=== PATIENT | male | born 1950 | race Caucasian/White ===

== ENCOUNTER 2019-07-13 15:15 | Outpatient (RCR) | payer MEDICARE, OTHER, SELFPAY ==
[2019-06-29 13:59] VITALS: BP 130/81; PULSE 77; RESP 18; TEMP 36.2; BMI 25.0
--- NOTE | 2019-06-29 14:35 | PCM.WC.HP ---
(1) PVD (peripheral vascular disease) Status: Acute Current Visit: Yes Code(s): I73.9 - Peripheral vascular disease, unspecified (2) Venous ulcer of left leg Status: Acute Current Visit: Yes Code(s): I83.029 - Varicose veins of left lower extremity with ulcer of unspecified site; L97.929 - Non-pressure chronic ulcer of unspecified part of left lower leg with unspecified severity (3) Psoriasis Status: Acute Current Visit: Yes Code(s): L40.9 - Psoriasis, unspecified (4) ADHD Status: Acute Current Visit: Yes Code(s): F90.9 - Attention-deficit hyperactivity disorder, unspecified type (5) Alcohol dependence Status: Acute Current Visit: Yes Code(s): F10.20 - Alcohol dependence, uncomplicated (6) Depression Status: Acute Current Visit: Yes Code(s): F32.9 - Major depressive disorder, single episode, unspecified History of Present Illness Date of Service: 06/29/19 Chief Complaint: Nonhealing ulcer left lower extremity x2 months History of Wound: This is a 69-year-old white male who presents to the wound healing center today with a complaint of nonhealing ulcer to the left lower extremity x2 months. He has a past medical history as listed above significant for peripheral vascular disease, depression, ADHD, alcohol dependence, and psoriasis. The patient states that he was initially seen by his primary care provider who had placed him initially on Keflex for the surrounding cellulitis and has been covering the site with gauze. He states that the wound initially occurred after he started picking at 1 of his areas of psoriasis. He states that there is no improvement on the Keflex so his antibiotic was most recently switched to clindamycin. He continues to report some surrounding erythema but no systemic signs of infection such as fevers, chills, malaise, nausea or vomiting. He denies any other acute concerns at this time. He denies any other aggravating or relieving factors. He did recently have arterial studies done this week, however records are not available for review at this time. Past Medical History Surgical History: noncontributory Allergies/Adverse Reactions: Allergies sulfamethoxazole [From Bactrim] Adverse Reaction (Verified 06/29/19 13:59) Unknown trimethoprim [From Bactrim] Adverse Reaction (Verified 06/29/19 13:59) Unknown Home Medications: Ambulatory Orders Medication Instructions Recorded Adderall 7.5 mg Tablet 7.5 mg 06/29/19 Bupropion HCl 200 mg 06/29/19 Clindamycin 300 mg 06/29/19 Vit B12/Folic Acid/B6/Aa No.15 1 ea PO 06/29/19 [Glycotrol Capsule] Vit D3/Folic Acid/B2/B6/B12 06/29/19 [Folgard Tablet] Smoking Status: Former smoker Review of Systems Constitutional: Denies: Chills, Fever, Weight Change Eyes: Denies: Pain, Vision Change HEENT: Denies: Difficulty Hearing, Difficulty Swallowing, Sinus Congestion Cardiovascular: Denies: Chest Pain, Palpitations Respiratory: Denies: Cough, Shortness of Breath Gastrointestinal: Denies: Diarrhea, Nausea, Vomiting Genitourinary: Denies: Dysuria, Hematuria Skin: Reports: Wounds - See HPI Endocrine: Denies: Heat/ Cold Intolerance, Polydipsia, Polyuria Hematologic/ Lymphatic: Denies: Easy Bruising, Easy Bleeding - Physical Exam Vital Signs Temp Pulse Resp BP 97.1 F L 77 18 130/81 H 06/29/19 13:59 06/29/19 13:59 06/29/19 13:59 06/29/19 13:59 General: Alert, Oriented x3, Cooperative, No apparent distress HEENT: Atraumatic Oral: Moist Mucosa Lungs: Clear to auscultation, Normal air movement Cardiovascular: Regular rate, Regular Rhythm Abdomen: Soft, Non Tender Extremities: No clubbing, No cyanosis, Diminished Peripheral Pulses - +1 diminished pulses, Edema - Bilateral lower extremity edema +1 nonpitting Skin: Ulcer/ Wound - Ulceration with large amount of adherent slough to left lower extremity with greater than 3 cm area of cellulitis with erythema and warmth, no streaking noted at this time, no purulent drainage or foul smell noted at this time Wound Measurements and Assessment WC - Nurse 1 - General Ulcer Measurement Start: 06/29/19 13:58 Freq: Status: Active Protocol: Activity Type Activity Date Activity User E-Sign Co-Sign Detail Recorded Client Recorded Date Recorded By Document 06/29/19 13:59 RB [id number] 06/29/19 14:06 RB 06/29/19 13:59 Wound Center Nurse 1 [Ulcer Assessment] 1. L medial LE -Combined with other wound No -Current Size (cm) - Length 2.3 -Current Size (cm) - Width 2 -Current Size (cm) - Depth 0.2 -Total Square Cm 4.6 -Photo Taken Yes -Tunneling No -Undermining/Tunneling No -Circular Undermining No -Classification - Thickness Full Thickness without Exposed Support Structure -Exudate Amt Medium -Exudate Type Serosanguineous -Wound Margin Flat & Intact -Granulation Amt Medium (34-66%) -Granulation Quality Red -Slough/Fibrin Yes -Necrosis Amt Medium (34-66%) -Necrotic Tissue Type Adherent Slough -Structure Exposed N/A -Texture (Jackie-wound Skin Appearance) Assessed -Moisture (Jackie-wound Skin Appearance Assessed ) -Color (Jackie-wound Skin Appearance) Hemosiderin Staining -Temperature (Jackie-wound Skin No Abnormality Appearance) (Pt Warm) -Tenderness on Palpation (Jackie-wound No Skin Appearance) -Ulcer Cleansing Wound Cleanser -Foul Odor after Cleansing No -Anesthetic Used 5% Lidocaine Gel [Edema Assessment] -Lower Limb Edema Present Yes -Right Calf (cm) 41 -Right Ankle (cm) 25 -Left Calf (cm) 38.5 -Left Ankle (cm) 24.7 WC - Nurse 2 - General Ulcer CM Notes Start: 06/29/19 13:58 Freq: Status: Active Protocol: Activity Type Activity Date Activity User E-Sign Co-Sign Detail Recorded Client Recorded Date Recorded By Document 06/29/19 14:31 AN [id number] 06/29/19 14:33 AN 06/29/19 14:31 Wound Center Nurse 2 [Procedure/Treatment] 1. L medial LE -Time 14:32 -Correct Patient Yes -Correct Side, Site, Position Yes -Correct Procedure Yes -Procedure Performed Yes -Type of Procedure Debridement -Clinical Debridement Subcutaneous -Post Debridement Size (cm) - Length 4.2 -Post Debridement Size (cm) - Width 2.1 -Post Debridement Size (cm) - Depth 0.2 -Total Square Cm 8.82 -Wound/Ulcer Outcome Not Healed -Ulcer Cleansing Rinsed/ Irrigated with Saline -Foul Odor after Cleansing No -Bioengineered Tissue No -Bleeding Controlled with Pressure -Treatment Response Procedure Tolerated Well [See Physician Procedure note for Specifics] Pain Scale: 0-10 Numeric [Pain] -Is Patient Pain Free? Yes Neurological: Neuro grossly intact Psych/Mental Status: Normal Affect, Appropriate, Alert and oriented to time, place, person, mood and affect Debridement Note Post-Debridement Measurements/Treatment WC - Nurse 2 - General Ulcer CM Notes Start: 06/29/19 13:58 Freq: Status: Active Protocol: Activity Type Activity Date Activity User E-Sign Co-Sign Detail Recorded Client Recorded Date Recorded By Document 06/29/19 14:31 SARIAH [id number] 06/29/19 14:33 AN 06/29/19 14:31 Wound Center Nurse 2 1. L medial LE -Time 14:32 -Correct Patient Yes -Correct Side, Site, Position Yes -Correct Procedure Yes -Procedure Performed Yes -Type of Procedure Debridement -Clinical Debridement Subcutaneous -Post Debridement Size (cm) - Length 4.2 -Post Debridement Size (cm) - Width 2.1 -Post Debridement Size (cm) - Depth 0.2 -Total Square Cm 8.82 -Wound/Ulcer Outcome Not Healed -Ulcer Cleansing Rinsed/ Irrigated with Saline -Foul Odor after Cleansing No -Bioengineered Tissue No -Bleeding Controlled with Pressure -Treatment Response Procedure Tolerated Well Pain Scale: 0-10 Numeric Is Patient Pain Free? Yes Wound debrided: Venous leg ulcer left lower extremity Laterality: Left Type of Debridement: Excisional debridement Anesthesia Used: 4% Lidocaine Solution Depth: in the subcutaneous layer Percentage of wound debrided: 100 Instrument Used: 5mm curette Tissue Removed: Slough and devitalized tissue Severity: Fat Layer Exposed Amount of bleeding with debridement: Mild Bleeding Controlled with: Pressure Patient tolerated procedure well Assessment/Plan Active Problems PVD (peripheral vascular disease) (Acute) Venous ulcer of left leg (Acute) Psoriasis (Acute) ADHD (Acute) Alcohol dependence (Acute) Depression (Acute) Assessment: See above diagnoses, major wound diagnoses PVD and venous leg ulcer of the left lower extremity Plan: The patient was seen and examined at the wound center today and was updated on the plan of care. A subcutaneous debridement was performed today. The patient tolerated the procedure well. The patients wound care will consist of: Applying moistened Paulina and gauze and double layer Tubigrip's for compression. Will request recent arterial studies and blood work for review. Wound cultures were collected. Patient educated on the importance of diet on wound healing and instructed to increase protein and vitamin C intake. Patient verbalized understanding. Given the delayed wound healing and the fact that patient has failed 2 months of standard wound treatment from his primary care, will apply for the use of an advanced skin substitute. Patient will follow up at wound healing center in one week or sooner if needed. This note was generated with [employer] software. It may contain incorrect words, spelling, and punctuation that were not noted in checking the note before signing. Code Visit Office Visits / Consults: [id number] OV L4 New [id number]: [id number] Elizabeth subq tissue 20 sq cm/<
[2019-06-30 16:36] LABS: Probe Check PASS; Staph aureus DNA By PCR POSITIVE (Negative)
[2019-06-30 16:37] LABS: M R Staph aureus DNA By PCR POSITIVE (Negative)
[2019-07-06 14:29] VITALS: BP 120/66; PULSE 94; RESP 16; TEMP 36.6; BMI 25.0
--- NOTE | 2019-07-06 19:40 | PCM.WC.PN ---
(1) Venous ulcer of left leg Status: Acute Code(s): I83.029 - Varicose veins of left lower extremity with ulcer of unspecified site; L97.929 - Non-pressure chronic ulcer of unspecified part of left lower leg with unspecified severity (2) PVD (peripheral vascular disease) Status: Acute Code(s): I73.9 - Peripheral vascular disease, unspecified (3) Psoriasis Status: Acute Code(s): L40.9 - Psoriasis, unspecified (4) ADHD Status: Acute Code(s): F90.9 - Attention-deficit hyperactivity disorder, unspecified type (5) Alcohol dependence Status: Acute Code(s): F10.20 - Alcohol dependence, uncomplicated (6) Depression Status: Acute Code(s): F32.9 - Major depressive disorder, single episode, unspecified Type of Wound Date of Service: 07/06/19 Chief Complaint: Nonhealing ulcer left lower extremity x2 months History of Wound: This is a 69-year-old white male who presents to the wound healing center today with a complaint of nonhealing ulcer to the left lower extremity x2 months. He has a past medical history as listed above significant for peripheral vascular disease, depression, ADHD, alcohol dependence, and psoriasis. The patient states that he was initially seen by his primary care provider who had placed him initially on Keflex for the surrounding cellulitis and has been covering the site with gauze. He states that the wound initially occurred after he started picking at 1 of his areas of psoriasis. He states that there is no improvement on the Keflex so his antibiotic was most recently switched to clindamycin. He continues to report some surrounding erythema but no systemic signs of infection such as fevers, chills, malaise, nausea or vomiting. He denies any other acute concerns at this time. He denies any other aggravating or relieving factors. He did recently have arterial studies done this week, however records are not available for review at this time. Progress of Wound: Wound size is stable, surrounding area of cellulitis is improved, still some erythema periwound bed. Patient completed his clindamycin prior. His cultures were reviewed and negative. Will be started on doxycycline today. First Apligraf was applied today. Patient tolerated procedure well. - Physical Exam Vital Signs Temp Pulse Resp BP 98 F 94 16 120/66 07/06/19 14:29 07/06/19 14:29 07/06/19 14:29 07/06/19 14:29 General: Alert, Oriented x3, Cooperative, No apparent distress HEENT: Atraumatic Oral: Moist Mucosa Lungs: Clear to auscultation Cardiovascular: Regular rate Abdomen: Soft, Non Tender Extremities: No clubbing, No cyanosis, Edema - Generalized bilateral lower extremity edema with chronic venous changes present bilateral lower extremities Skin: Ulcer/ Wound - Ulceration to left lower extremity with adherent slough, periwound bed erythematous, however prior area of cellulitis is resolving from the previous margins that were outlined. Neurological: Neuro grossly intact Psych/Mental Status: Normal Affect, Appropriate, Alert and oriented to time, place, person, mood and affect Debridement Note Post-Debridement Measurements/Treatment WC - Nurse 2 - General Ulcer CM Notes Start: 06/29/19 13:58 Freq: Status: Active Protocol: Activity Type Activity Date Activity User E-Sign Co-Sign Detail Recorded Client Recorded Date Recorded By Document 06/29/19 14:31 AN [id number] 06/29/19 14:33 AN Document 07/06/19 14:39 MW [id number] 07/06/19 14:50 MW 06/29/19 07/06/19 14:31 14:39 Wound Center Nurse 2 1. L medial LE -Time 14:32 14:41 -Correct Patient Yes Yes -Correct Side, Site, Position Yes Yes -Correct Procedure Yes Yes -Procedure Performed Yes Yes -Type of Procedure Debridement Debridement -Clinical Debridement Subcutaneous Subcutaneous -Post Debridement Size (cm) - Length 4.2 3.0 -Post Debridement Size (cm) - Width 2.1 2.2 -Post Debridement Size (cm) - Depth 0.2 0.2 -Total Square Cm 8.82 6.60 -Wound/Ulcer Outcome Not Healed Not Healed -Ulcer Cleansing Rinsed/ Rinsed/ Irrigated with Irrigated with Saline Saline -Foul Odor after Cleansing No No -Bioengineered Tissue No Yes -Type of bioengineered Tissue Apligraf -Expiration Date 07/14/19 -Product Lot Number [id number] -Percent Used 100 -Saline Lot Number [id number] -Bleeding Controlled with Pressure Pressure -Offloading No -Treatment Response Procedure Procedure Tolerated Well Tolerated Well Pain Scale: 0-10 Numeric Is Patient Pain Free? Yes Yes Wound debrided: Left VL U Laterality: Left Type of Debridement: Excisional debridement Anesthesia Used: 5% Lidocaine Gel Depth: in the subcutaneous layer Percentage of wound debrided: 100 Instrument Used: 7mm curette Tissue Removed: Slough and devitalized tissue Severity: Fat Layer Exposed Amount of bleeding with debridement: Mild Bleeding Controlled with: Pressure Patient tolerated procedure well Assessment/Plan Assessment: See above diagnoses, major wound diagnoses PVD and venous leg ulcer of the left lower extremity Plan: The patient was seen and examined at the wound center today and was updated on the plan of care. A subcutaneous debridement was performed today. The patient tolerated the procedure well. The patients wound care will consist of: Apligraf # 1 was applied after subcutaneous debridement, it was then covered with the wound veil and secured with Steri-Strips, 100% of the product was used with 0% waste. Patient tolerated the procedure well. Applying double layer Tubigrip's for compression. Will request recent arterial studies and blood work for review. Wound cultures were collected prior and are negative, however given the periwound bed erythema, will treat with doxycycline. Patient educated on the importance of diet on wound healing and instructed to increase protein and vitamin C intake. Patient verbalized understanding. Given the delayed wound healing and the fact that patient has failed 2 months of standard wound treatment from his primary care, will apply for the use of an advanced skin substitute. Patient will follow up at wound healing center in one week or sooner if needed. This note was generated with [employer] dictation software. It may contain incorrect words, spelling, and punctuation that were not noted in checking the note before signing. Code Visit [id number]: [id number] Skin sub graft trnk/arm/leg
[2019-07-13 15:34] VITALS: BP 106/65; PULSE 83; RESP 18; TEMP 36.1; BMI 25.0
--- NOTE | 2019-07-16 19:56 | PN.PCM_ITS ---
(1) Venous ulcer of left leg Status: Acute Code(s): I83.029 - Varicose veins of left lower extremity with ulcer of unspecified site; L97.929 - Non-pressure chronic ulcer of unspecified part of left lower leg with unspecified severity (2) PVD (peripheral vascular disease) Status: Acute Code(s): I73.9 - Peripheral vascular disease, unspecified (3) Psoriasis Status: Acute Code(s): L40.9 - Psoriasis, unspecified (4) ADHD Status: Acute Code(s): F90.9 - Attention-deficit hyperactivity disorder, unspecified type (5) Alcohol dependence Status: Acute Code(s): F10.20 - Alcohol dependence, uncomplicated (6) Depression Status: Acute Code(s): F32.9 - Major depressive disorder, single episode, unspecified Type of Wound Date of Service: 07/13/19 Chief Complaint: Nonhealing ulcer left lower extremity x2 months History of Wound: This is a 69-year-old white male who presents to the [facility] today with a complaint of nonhealing ulcer to the left lower extremity x2 months. He has a past medical history as listed above significant for peripheral vascular disease, depression, ADHD, alcohol dependence, and psoriasis. The patient states that he was initially seen by his primary care provider who had placed him initially on Keflex for the surrounding cellulitis and has been covering the site with gauze. He states that the wound initially occurred after he started picking at 1 of his areas of psoriasis. He states that there is no improvement on the Keflex so his antibiotic was most recently switched to clindamycin. He continues to report some surrounding erythema but no systemic signs of infection such as fevers, chills, malaise, nausea or vomiting. He denies any other acute concerns at this time. He denies any other aggravating or relieving factors. He did recently have arterial studies done this week, however records are not available for review at this time. Progress of Wound: Wound size was not able to be thoroughly evaluated as Apligraf application still in place, patient tolerating his doxycycline well. No obvious signs of infection at this time and no systemic signs of infection such as fever, chills, nausea, vomiting, shortness of breath, chest pain or pressure, syncope or presyncopal episodes. - Physical Exam Vital Signs Temp Pulse Resp BP 97.0 F L 83 18 106/65 07/13/19 15:34 07/13/19 15:34 07/13/19 15:34 07/13/19 15:34 General: Alert, Oriented x3, Cooperative, No apparent distress HEENT: Atraumatic Oral: Moist Mucosa Lungs: Clear to auscultation Cardiovascular: Regular rate Abdomen: Soft, Non Tender Extremities: No clubbing, No cyanosis, No edema Skin: Ulcer/ Wound - not visualized, apligraf in place Musculoskeletal: No Tenderness to Palpation of Joints or Extremities Neurological: Neuro grossly intact Psych/Mental Status: Normal Affect, Appropriate, Alert and oriented to time, place, person, mood and affect Debridement Note Post-Debridement Measurements/Treatment WC - Nurse 2 - General Ulcer CM Notes Start: 06/29/19 13:58 Freq: Status: Active Protocol: Activity Type Activity Date Activity User E-Sign Co-Sign Detail Recorded Client Recorded Date Recorded By Document 06/29/19 14:31 AN [id number] 06/29/19 14:33 AN Document 07/06/19 14:39 MW [id number] 07/06/19 14:50 MW Document 07/13/19 15:51 MW [id number] 07/13/19 15:53 MW 06/29/19 07/06/19 07/13/19 14:31 14:39 15:51 Wound Center Nurse 2 1. L [facility] LE -Time 14:32 14:41 15:52 -Correct Patient Yes Yes Yes -Correct Side, Site, Position Yes Yes Yes -Correct Procedure Yes Yes Yes -Procedure Performed Yes Yes No -Type of Procedure Debridement Debridement -Clinical Debridement Subcutaneous Subcutaneous -Post Debridement Size (cm) - Length 4.2 3.0 -Post Debridement Size (cm) - Width 2.1 2.2 -Post Debridement Size (cm) - Depth 0.2 0.2 -Total Square Cm 8.82 6.60 -Wound/Ulcer Outcome Not Healed Not Healed Not Healed -Ulcer Cleansing Rinsed/ Rinsed/ Irrigated with Irrigated with Saline Saline -Foul Odor after Cleansing No No -Bioengineered Tissue No Yes -Type of bioengineered Tissue Apligraf -Expiration Date 07/14/19 -Product Lot Number [id number] -Percent Used 100 -Saline Lot Number [id number] -Bleeding Controlled with Pressure Pressure -Offloading No -Treatment Response Procedure Procedure Tolerated Well Tolerated Well Pain Scale: 0-10 Numeric Is Patient Pain Free? Yes Yes Yes No debridement was completed today Assessment/Plan Assessment: See above diagnoses, major wound diagnoses PVD and venous leg ulcer of the left lower extremity Plan: The patient was seen and examined at the wound center today and was updated on the plan of care. A subcutaneous debridement was performed today. The patient tolerated the procedure well. The patients wound care will consist of: Apligraf # 1 was still intact and patient to continue Applying double layer Tubigrip's for compression. Will request recent arterial studies and blood work for review. Wound cultures were collected prior and are negative, however given the periwound bed erythema, patient treated with doxycycline. Patient educated on the importance of diet on wound healing and instructed to increase protein and vitamin C intake. Patient verbalized understanding. Given the delayed wound healing and the fact that patient has failed 2 months of standard wound treatment from his primary care, will apply for the use of an advanced skin substitute. Patient will follow up at wound healing center in one week or sooner if needed. This note was generated with [employer] dictation software. It may contain incorrect words, spelling, and punctuation that were not noted in checking the note before signing. Code Visit Office Visits / Consults: [id number] OV L3 Est
== END 2019-07-15 23:59 ==
LOC: WC 15:15
PROVIDERS: Family Provider Nurse Practitioner Family; PCP Nurse Practitioner Family; Visit Provider Nurse Practitioner Family
DX: I83.028 Varicose veins of left lower extremity with ulcer other part of lower leg (principal); L97.822 Non-pressure chronic ulcer of other part of left lower leg with fat layer exposed; L40.9 Psoriasis, unspecified; F90.9 Attention-deficit hyperactivity disorder, unspecified type; F32.9 Major depressive disorder, single episode, unspecified; F10.20 Alcohol dependence, uncomplicated
CPT/HCPCS: 11042; 15271; 15272; 87070; 87075; 87205; 87640; 99203; 99213; Q4101; G0463

== ENCOUNTER 2019-08-10 14:15 | Outpatient (RCR) | payer MEDICARE, SELFPAY ==
[2019-07-16 01:12] VITALS: BP 106/65; PULSE 83; RESP 18; TEMP 36.1
[2019-07-20 15:14] VITALS: BP 117/71; PULSE 86; RESP 18; TEMP 36; BMI 25.0
--- NOTE | 2019-07-20 17:18 | PN.PCM_ITS ---
(1) Venous ulcer of left leg Status: Acute Code(s): I83.029 - Varicose veins of left lower extremity with ulcer of unspecified site; L97.929 - Non-pressure chronic ulcer of unspecified part of left lower leg with unspecified severity (2) ADHD Status: Acute Code(s): F90.9 - Attention-deficit hyperactivity disorder, unspecified type (3) Alcohol dependence Status: Acute Code(s): F10.20 - Alcohol dependence, uncomplicated (4) Depression Status: Acute Code(s): F32.9 - Major depressive disorder, single episode, unsp ecified (5) PVD (peripheral vascular disease) Status: Acute Code(s): I73.9 - Peripheral vascular disease, unspecified (6) Psoriasis Status: Acute Code(s): L40.9 - Psoriasis, unspecified Type of Wound Date of Service: 07/20/19 Chief Complaint: Nonhealing ulcer left lower extremity x2 months History of Wound: This is a 69-year-old white male who presents to the [facility] today with a complaint of nonhealing ulcer to the left lower extremity x2 months. He has a past medical history as listed above significant for peripheral vascular disease, depression, ADHD, alcohol dependence, and psoriasis. The patient states that he was initially seen by his primary care provider who had placed him initially on Keflex for the surrounding cellulitis and has been covering the site with gauze. He states that the wound initially occurred after he started picking at 1 of his areas of psoriasis. He states that there is no improvement on the Keflex so his antibiotic was most recently switched to clindamycin. He continues to report some surrounding erythema but no systemic signs of infection such as fevers, chills, malaise, nausea or vomiting. He denies any other acute concerns at this time. He denies any other aggravating or relieving factors. He did recently have arterial studies done this week, however records are not available for review at this time. Progress of Wound: Wound is stable, surrounding area of cellulitis is improved, still some erythema periwound bed. Patient completed his clindamycin prior. His cultures were reviewed and negative. Completed course of doxycycline as well. Second Apligraf was applied today. Patient tolerated procedure well. - Physical Exam Vital Signs Temp Pulse Resp BP 96.8 F L 86 18 117/71 07/20/19 15:14 07/20/19 15:14 07/20/19 15:14 07/20/19 15:14 General: Alert, Oriented x3, Cooperative, No apparent distress HEENT: Atraumatic Oral: Moist Mucosa Lungs: Clear to auscultation Cardiovascular: Regular rate Abdomen: Soft, Non Tender Extremities: No clubbing, No cyanosis, Edema - Generalized bilateral lower extremity edema Skin: Ulcer/ Wound - See nursing documentation, prior area of cellulitis has resolved, less than 1 cm periwound bed erythema noted. Neurological: Neuro grossly intact Psych/Mental Status: Normal Affect, Appropriate, Alert and oriented to time, place, person, mood and affect Debridement Note Post-Debridement Measurements/Treatment WC - Nurse 2 - General Ulcer CM Notes Start: 07/20/19 15:14 Freq: Status: Active Protocol: Activity Type Activity Date Activity User E-Sign Co-Sign Detail Recorded Client Recorded Date Recorded By Document 07/20/19 15:46 AN [id number] 07/20/19 15:50 AN 07/20/19 15:46 Wound Center Nurse 2 1. L medial LE -Time 15:49 -Correct Patient Yes -Correct Side, Site, Position Yes -Correct Procedure Yes -Procedure Performed Yes -Type of Procedure Debridement -Clinical Debridement Subcutaneous -Post Debridement Size (cm) - Length 3.1 -Post Debridement Size (cm) - Width 2.2 -Post Debridement Size (cm) - Depth 0.1 -Total Square Cm 6.82 -Wound/Ulcer Outcome Not Healed -Ulcer Cleansing Rinsed/ Irrigated with Saline -Foul Odor after Cleansing No -Bioengineered Tissue Yes -Type of bioengineered Tissue Apligraf -Bleeding Controlled with Pressure -Offloading No -Treatment Response Procedure Tolerated Well Pain Scale: 0-10 Numeric Is Patient Pain Free? Yes Wound debrided: Left lower extremity venous leg ulcer Laterality: Left Type of Debridement: Excisional debridement Anesthesia Used: 5% Lidocaine Gel Depth: in the subcutaneous layer Percentage of wound debrided: 100 Instrument Used: 7mm curette Tissue Removed: Slough and devitalized tissue Severity: Fat Layer Exposed Amount of bleeding with debridement: Mild Bleeding Controlled with: Pressure Patient tolerated procedure well Assessment/Plan Assessment: See above diagnoses, major wound diagnoses PVD and venous leg ulcer of the left lower extremity Plan: The patient was seen and examined at the wound center today and was updated on the plan of care. A subcutaneous debridement was performed today. The patient tolerated the procedure well. The patients wound care will consist of: Apligraf # 2 was applied today and secured with steroids and Adaptic touch, 100% of the product was utilized with 0% waste continue with double Tubigrip's for compression. Will request recent arterial studies and blood work for review. Wound cultures were collected prior and are negative, however given the periwound bed erythema, patient treated with doxycycline. Patient educated on the importance of diet on wound healing and instructed to increase protein and vitamin C intake. Patient verbalized understanding. Given the delayed wound healing and the fact that patient has failed 2 months of standard wound treatment from his primary care, will apply for the use of an advanced skin substitute. Patient will follow up at wound healing center in one week or sooner if needed. This note was generated with [employer] dictation software. It may contain incorrect words, spelling, and punctuation that were not noted in checking the note before signing. Code Visit 150xxx-152xx: 02328 Skin sub graft trnk/arm/leg
[2019-07-27 14:33] VITALS: BP 135/70; PULSE 87; RESP 18; TEMP 36.2; BMI 25.0
--- NOTE | 2019-07-27 14:36 | WC ---
apligraf and wound veil left in place wound not measured d/tbeing covereed
[2019-07-27 22:53] LABS: M R Staph aureus DNA By PCR Negative (Negative); Probe Check PASS; Specimen Processing Control PASS; Staph aureus DNA By PCR NEGATIVE (Negative)
[2019-07-31 13:58] VITALS: BP 125/61; PULSE 77; RESP 18; TEMP 36.3; BMI 25.0
--- NOTE | 2019-08-02 11:04 | PN.PCM_ITS ---
(1) Venous ulcer of left leg Status: Acute Current Visit: Yes Code(s): I83.029 - Varicose veins of left lower extremity with ulcer of unspecified site; L97.929 - Non-pressure chronic ulcer of unspecified part of left lower leg with unspecified severity (2) ADHD Status: Acute Current Visit: No Code(s): F90.9 - Attention-deficit hyperactivity disorder, unspecified type (3) Alcohol dependence Status: Acute Current Visit: No Code(s): F10.20 - Alcohol dependence, uncomplicated (4) Depression Status: Acute Current Visit: No Code(s): F32.9 - Major depressive disorder, single episode, unspecified (5) PVD (peripheral vascular disease) Status: Acute Current Visit: Yes Code(s): I73.9 - Peripheral vascular disease, unspecified (6) Psoriasis Status: Acute Current Visit: Yes Code(s): L40.9 - Psoriasis, unspecified Type of Wound Date of Service: 07/27/19 Chief Complaint: Nonhealing ulcer left lower extremity x2 months History of Wound: This is a 69-year-old white male who presents to the wound healing center today with a complaint of nonhealing ulcer to the left lower extremity x2 months. He has a past medical history as listed above significant for peripheral vascular disease, depression, ADHD, alcohol dependence, and psoriasis. The patient states that he was initially seen by his primary care provider who had placed him initially on Keflex for the surrounding cellulitis and has been covering the site with gauze. He states that the wound initially occurred after he started picking at 1 of his areas of psoriasis. He states that there is no improvement on the Keflex so his antibiotic was most recently switched to clindamycin. He continues to report some surrounding erythema but no systemic signs of infection such as fevers, chills, malaise, nausea or vomiting. He denies any other acute concerns at this time. He denies any other aggravating or relieving factors. He did recently have arterial studies done this week, however records are not available for review at this time. Progress of Wound: Wound is slightly worsened, surrounding area of cellulitis is improved, still some erythema periwound bed. Patient completed his clindamycin prior. His cultures were reviewed and negative. Completed course of doxycycline as well. 3rd Apligraf was applied today. Patient tolerated procedure well. New cultures collected today. - Physical Exam Vital Signs Temp Pulse Resp BP 97.3 F L 77 18 125/61 H 07/31/19 13:58 07/31/19 13:58 07/31/19 13:58 07/31/19 13:58 General: Alert, Oriented x3, Cooperative, No apparent distress HEENT: Atraumatic Oral: Moist Mucosa Lungs: Clear to auscultation Cardiovascular: Regular rate Abdomen: Soft, Non Tender Extremities: No clubbing, No cyanosis, Edema - Generalized bilateral lower extremity edema Skin: Ulcer/ Wound - ulcer to left lower extremity with adherent slough, periwound bed slightly no signs of obvious infection at this time. Wound Measurements and Assessment WC - Nurse 1 - General Ulcer Measurement Start: 07/20/19 15:14 Freq: Status: Active Protocol: Activity Type Activity Date Activity User E-Sign Co-Sign Detail Recorded Client Recorded Date Recorded By Document 07/31/19 13:58 DL [id number] 07/31/19 14:03 DL 07/31/19 13:58 Wound Center Nurse 1 [Ulcer Assessment] 1. L medial LE -Combined with other wound No -Photo Taken No -Tunneling No -Undermining/Tunneling No -Exudate Amt Small -Exudate Type Serosanguineous -Wound Margin Flat & Intact -Texture (Jackie-wound Skin Appearance) Assessed -Moisture (Jackie-wound Skin Appearance Assessed ) -Color (Jackie-wound Skin Appearance) Erythema -Temperature (Jackie-wound Skin No Abnormality Appearance) (Pt Warm) -Tenderness on Palpation (Jackie-wound No Skin Appearance) -Ulcer Cleansing Wound Cleanser -Foul Odor after Cleansing No [Edema Assessment] -Lower Limb Edema Present Yes -Left Calf (cm) 35 -Left Ankle (cm) 21.5 Musculoskeletal: No Tenderness to Palpation of Joints or Extremities, No Muscle Wasting Neurological: Neuro grossly intact Psych/Mental Status: Normal Affect, Appropriate, Alert and oriented to time, place, person, mood and affect Debridement Note Post-Debridement Measurements/Treatment WC - Nurse 2 - General Ulcer CM Notes Start: 07/20/19 15:14 Freq: Status: Active Protocol: Activity Type Activity Date Activity User E-Sign Co-Sign Detail Recorded Client Recorded Date Recorded By Document 07/20/19 15:46 AN [id number] 09/05/19 15:50 AN Document 07/27/19 14:53 AN [id number] 07/27/19 14:55 AN 07/20/19 07/27/19 15:46 14:53 Wound Center Nurse 2 1. Elvis maurizio LE -Time 15:49 14:53 -Correct Patient Yes Yes -Correct Side, Site, Position Yes Yes -Correct Procedure Yes Yes -Procedure Performed Yes Yes -Type of Procedure Debridement Debridement -Clinical Debridement Subcutaneous Subcutaneous -Post Debridement Size (cm) - Length 3.1 3.2 -Post Debridement Size (cm) - Width 2.2 2.5 -Post Debridement Size (cm) - Depth 0.1 0.3 -Total Square Cm 6.82 8.00 -Wound/Ulcer Outcome Not Healed Not Healed -Ulcer Cleansing Rinsed/ Irrigated with Saline -Foul Odor after Cleansing No -Bioengineered Tissue Yes -Type of bioengineered Tissue Apligraf Apligraf -Percent Used 100 -Bleeding Controlled with Pressure Pressure -Offloading No -Treatment Response Procedure Procedure Tolerated Well Tolerated Well Pain Scale: 0-10 Numeric Is Patient Pain Free? Yes Wound debrided: Lower extremity venous leg ulcer Laterality: Left Type of Debridement: Excisional debridement Anesthesia Used: 5% Lidocaine Gel Depth: in the subcutaneous layer Percentage of wound debrided: 100 Instrument Used: 7mm curette Tissue Removed: Slough and devitalized tissue Severity: Fat Layer Exposed Amount of bleeding with debridement: Mild Bleeding Controlled with: Pressure Patient tolerated procedure well Assessment/Plan Active Problems PVD (peripheral vascular disease) (Acute) Venous ulcer of left leg (Acute) Psoriasis (Acute) Assessment: See above diagnoses, major wound diagnoses PVD and venous leg ulcer of the left lower extremity Plan: The patient was seen and examined at the wound center today and was updated on the plan of care. A subcutaneous debridement was performed today. The patient tolerated the procedure well. The patients wound care will consist of: Apligraf # 3 was applied today and secured with steri and Adaptic touch, 100% of the product was utilized with 0% waste continue with 3m wrap for compression. Will request recent arterial studies and blood work for review, per pt was normal. Wound cultures were collected prior and are negative, however given the periwound bed erythema, patient treated with doxycycline she completed and will also recheck cultures today. Patient educated on the importance of diet on wound healing and instructed to increase protein and vitamin C intake. Patient verbalized understanding. Given the delayed wound healing and the fact that patient has failed 2 months of standard wound treatment from his primary care, will apply for the use of an advanced skin substitute. Patient will follow up at wound healing center in one week or sooner if needed. This note was generated with [employer] dictation software. It may contain incorrect words, spelling, and punctuation that were not noted in checking the note before signing. Code Visit 150xxx-152xx: 51936 Skin sub graft trnk/arm/leg
[2019-08-03 14:53] VITALS: BP 136/78; PULSE 87; RESP 18; TEMP 36.8; BMI 25.0
--- NOTE | 2019-08-03 22:24 | PN.PCM_ITS ---
(1) Venous ulcer of left leg Status: Acute Code(s): I83.029 - Varicose veins of left lower extremity with ulcer of unspecified site; L97.929 - Non-pressure chronic ulcer of unspecified part of left lower leg with unspecified severity (2) ADHD Status: Acute Code(s): F90.9 - Attention-deficit hyperactivity disorder, unspecified type (3) Alcohol dependence Status: Acute Code(s): F10.20 - Alcohol dependence, uncomplicated (4) Depression Status: Acute Code(s): F32.9 - Major depressive disorder, single episode, unsp ecified (5) PVD (peripheral vascular disease) Status: Acute Code(s): I73.9 - Peripheral vascular disease, unspecified (6) Psoriasis Status: Acute Code(s): L40.9 - Psoriasis, unspecified Type of Wound Date of Service: 08/03/19 Chief Complaint: Nonhealing ulcer left lower extremity x2 months History of Wound: This is a 69-year-old white male who presents to the [facility] today with a complaint of nonhealing ulcer to the left lower extremity x2 months. He has a past medical history as listed above significant for peripheral vascular disease, depression, ADHD, alcohol dependence, and psoriasis. The patient states that he was initially seen by his primary care provider who had placed him initially on Keflex for the surrounding cellulitis and has been covering the site with gauze. He states that the wound initially occurred after he started picking at 1 of his areas of psoriasis. He states that there is no improvement on the Keflex so his antibiotic was most recently switched to clindamycin. He continues to report some surrounding erythema but no systemic signs of infection such as fevers, chills, malaise, nausea or vomiting. He denies any other acute concerns at this time. He denies any other aggravating or relieving factors. He did recently have arterial studies done this week, however records are not available for review at this time. Progress of Wound: Wound is slightly worsened, surrounding area of cellulitis is improved, still some erythema periwound bed. Patient completed his clindamycin prior. His cultures were reviewed and showed anerobic bacteria and pt was placed on augmentin, which he has not picked up yet. 4th Apligraf was applied today. Patient tolerated procedure well. The patient otherwise denies any fever, chills, nausea, vomiting, shortness of breath, chest pain or pressure, palpitations, orthopnea, lower extremity edema, syncope or presyncopal episodes. - Physical Exam Vital Signs Temp Pulse Resp BP 98.2 F 87 18 136/78 H 08/03/19 14:53 08/03/19 14:53 08/03/19 14:53 08/03/19 14:53 General: Alert, Oriented x3, Cooperative, No apparent distress HEENT: Atraumatic Oral: Moist Mucosa Lungs: Clear to auscultation Cardiovascular: Regular rate Abdomen: Soft, Non Tender Extremities: No clubbing, No cyanosis, No edema Skin: Ulcer/ Wound - Ulceration to left lower extremity with adherent slough, no signs of infection at this time, pain has improved compared to last visit Neurological: Neuro grossly intact Psych/Mental Status: Normal Affect, Appropriate, Alert and oriented to time, place, person, mood and affect Debridement Note Post-Debridement Measurements/Treatment WC - Nurse 2 - General Ulcer CM Notes Start: 07/20/19 15:14 Freq: Status: Active Protocol: Activity Type Activity Date Activity User E-Sign Co-Sign Detail Recorded Client Recorded Date Recorded By Document 07/20/19 15:46 AN [id number] 07/20/19 15:50 AN Document 07/27/19 14:53 AN [id number] 07/27/19 14:55 AN Document 08/03/19 15:06 DL [id number] 08/03/19 15:16 DL 07/20/19 07/27/19 08/03/19 15:46 14:53 15:06 Wound Center Nurse 2 1. L medial LE -Time 15:49 14:53 15:08 -Correct Patient Yes Yes Yes -Correct Side, Site, Position Yes Yes Yes -Correct Procedure Yes Yes Yes -Procedure Performed Yes Yes Yes -Type of Procedure Debridement Debridement Debridement -Clinical Debridement Subcutaneous Subcutaneous Subcutaneous -Post Debridement Size (cm) - Length 3.1 3.2 3.2 -Post Debridement Size (cm) - Width 2.2 2.5 3.0 -Post Debridement Size (cm) - Depth 0.1 0.3 0.1 -Total Square Cm 6.82 8.00 9.60 -Wound/Ulcer Outcome Not Healed Not Healed Not Healed -Ulcer Cleansing Rinsed/ Rinsed/ Irrigated with Irrigated with Saline Saline -Foul Odor after Cleansing No No -Bioengineered Tissue Yes Yes -Type of bioengineered Tissue Apligraf Apligraf Apligraf -Percent Used 100 -Bleeding Controlled with Pressure Pressure Pressure -Offloading No No -Treatment Response Procedure Procedure Procedure Tolerated Well Tolerated Well Tolerated Well Pain Scale: 0-10 Numeric Is Patient Pain Free? Yes Yes Wound debrided: Left lower extremity venous leg ulcer Laterality: Left Type of Debridement: Excisional debridement Anesthesia Used: 5% Lidocaine Gel Depth: in the subcutaneous layer Percentage of wound debrided: 100 Instrument Used: 7mm curette Tissue Removed: Slough and devitalized tissue Severity: Fat Layer Exposed Amount of bleeding with debridement: Mild Bleeding Controlled with: Pressure Patient tolerated procedure well Assessment/Plan Assessment: See above diagnoses, major wound diagnoses PVD and venous leg ulcer of the left lower extremity Plan: The patient was seen and examined at the wound center today and was updated on the plan of care. A subcutaneous debridement was performed today. The patient tolerated the procedure well. The patients wound care will consist of: Apligraf # 4 was applied today and secured with steri and Adaptic touch, 100% of the product was utilized with 0% waste continue with 3m wrap for compression. Will request recent arterial studies and blood work for review, per pt was normal. Wound cultures were collected prior and are negative, however given the periwound bed erythema, patient treated with doxycycline she completed and will also recheck cultures today. Patient educated on the importance of diet on wound healing and instructed to increase protein and vitamin C intake. Patient verbalized understanding. Given the delayed wound healing and the fact that patient has failed 2 months of standard wound treatment from his primary care, will apply for the use of an advanced skin substitute. Patient will follow up at wound healing center in one week or sooner if needed. This note was generated with [employer] dictation software. It may contain incorrect words, spelling, and punctuation that were not noted in checking the note before signing. Code Visit 150xxx-152xx: 65513 Skin sub graft trnk/arm/leg
[2019-08-10 14:28] VITALS: RESP 16; TEMP 36.2; BMI 25.0
--- NOTE | 2019-08-10 14:37 | WC ---
apligraph left intact.
--- NOTE | 2019-08-10 20:33 | PCM.WC.PN ---
(1) Venous ulcer of left leg Status: Acute Code(s): I83.029 - Varicose veins of left lower extremity with ulcer of unspecified site; L97.929 - Non-pressure chronic ulcer of unspecified part of left lower leg with unspecified severity (2) ADHD Status: Acute Code(s): F90.9 - Attention-deficit hyperactivity disorder, unspecified type (3) Alcohol dependence Status: Acute Code(s): F10.20 - Alcohol dependence, uncomplicated (4) Depression Status: Acute Code(s): F32.9 - Major depressive disorder, single episode, unspecified (5) PVD (peripheral vascular disease) Status: Acute Code(s): I73.9 - Peripheral vascular disease, unspecified (6) Psoriasis Status: Acute Code(s): L40.9 - Psoriasis, unspecified Type of Wound Date of Service: 08/10/19 Chief Complaint: Nonhealing ulcer left lower extremity x2 months History of Wound: This is a 69-year-old white male who presents to the wound healing center today with a complaint of nonhealing ulcer to the left lower extremity x2 months. He has a past medical history as listed above significant for peripheral vascular disease, depression, ADHD, alcohol dependence, and psoriasis. The patient states that he was initially seen by his primary care provider who had placed him initially on Keflex for the surrounding cellulitis and has been covering the site with gauze. He states that the wound initially occurred after he started picking at 1 of his areas of psoriasis. He states that there is no improvement on the Keflex so his antibiotic was most recently switched to clindamycin. He continues to report some surrounding erythema but no systemic signs of infection such as fevers, chills, malaise, nausea or vomiting. He denies any other acute concerns at this time. He denies any other aggravating or relieving factors. He did recently have arterial studies done this week, however records are not available for review at this time. Progress of Wound: Wound is slightly worsened, surrounding area of cellulitis is improved, still some erythema periwound bed. Patient completed his clindamycin prior. His cultures were reviewed and showed anerobic bacteria and pt was placed on augmentin, which he is tolerating. Apligraf held today. The patient otherwise denies any fever, chills, nausea, vomiting, shortness of breath, chest pain or pressure, palpitations, orthopnea, lower extremity edema, syncope or presyncopal episodes. - Physical Exam Vital Signs Temp Pulse Resp BP 97.1 F L 87 16 136/78 H 08/10/19 14:28 08/03/19 14:53 08/10/19 14:28 08/03/19 14:53 General: Alert, Oriented x3, Cooperative, No apparent distress HEENT: Atraumatic Oral: Moist Mucosa Neck: Supple Lungs: Clear to auscultation Cardiovascular: Regular rate Abdomen: Soft, Non Tender Extremities: No clubbing, No cyanosis, Edema - Generalized bilateral lower extremity edema, Peripheral Pulses Normal Skin: Ulcer/ Wound - Ulceration to left lower extremity with adherent slough, no signs of obvious infection at this time, periwound bed slightly erythematous Neurological: Neuro grossly intact Psych/Mental Status: Normal Affect, Appropriate, Alert and oriented to time, place, person, mood and affect Debridement Note Post-Debridement Measurements/Treatment WC - Nurse 2 - General Ulcer CM Notes Start: 07/20/19 15:14 Freq: Status: Active Protocol: Activity Type Activity Date Activity User E-Sign Co-Sign Detail Recorded Client Recorded Date Recorded By Document 07/20/19 15:46 AN [id number] 07/20/19 15:50 AN Document 07/27/19 14:53 AN [id number] 07/27/19 14:55 AN Document 08/03/19 15:06 DL [id number] 08/03/19 15:16 DL Document 08/10/19 15:15 AN [id number] 08/10/19 15:23 AN 07/20/19 07/27/19 08/03/19 15:46 14:53 15:06 Wound Center Nurse 2 1. L [facility] LE -Time 15:49 14:53 15:08 -Correct Patient Yes Yes Yes -Correct Side, Site, Position Yes Yes Yes -Correct Procedure Yes Yes Yes -Procedure Performed Yes Yes Yes -Type of Procedure Debridement Debridement Debridement -Clinical Debridement Subcutaneous Subcutaneous Subcutaneous -Post Debridement Size (cm) - Length 3.1 3.2 3.2 -Post Debridement Size (cm) - Width 2.2 2.5 3.0 -Post Debridement Size (cm) - Depth 0.1 0.3 0.1 -Total Square Cm 6.82 8.00 9.60 -Wound/Ulcer Outcome Not Healed Not Healed Not Healed -Ulcer Cleansing Rinsed/ Rinsed/ Irrigated with Irrigated with Saline Saline -Foul Odor after Cleansing No No -Bioengineered Tissue Yes Yes -Type of bioengineered Tissue Apligraf Apligraf Apligraf -Percent Used 100 -Bleeding Controlled with Pressure Pressure Pressure -Offloading No No -Treatment Response Procedure Procedure Procedure Tolerated Well Tolerated Well Tolerated Well Pain Scale: 0-10 Numeric Is Patient Pain Free? Yes Yes 08/10/19 15:15 Wound Center Nurse 2 1. L maurizio LE -Time 15:20 -Correct Patient Yes -Correct Side, Site, Position Yes -Correct Procedure Yes -Procedure Performed Yes -Type of Procedure Debridement -Clinical Debridement Subcutaneous -Post Debridement Size (cm) - Length 3.5 -Post Debridement Size (cm) - Width 3.0 -Post Debridement Size (cm) - Depth 0.1 -Total Square Cm 10.50 -Wound/Ulcer Outcome Not Healed -Ulcer Cleansing Rinsed/ Irrigated with Saline -Foul Odor after Cleansing No -Bioengineered Tissue No -Type of bioengineered Tissue -Percent Used -Bleeding Controlled with Pressure -Offloading Yes -Treatment Response Procedure Tolerated Well Pain Scale: 0-10 Numeric Is Patient Pain Free? Yes Wound debrided: Lower extremity ulceration Laterality: Left Type of Debridement: Excisional debridement Anesthesia Used: 5% Lidocaine Gel Depth: in the subcutaneous layer Percentage of wound debrided: 100 Instrument Used: 7mm curette Tissue Removed: slough and Devitalized tissue Severity: Fat Layer Exposed Amount of bleeding with debridement: Mild Bleeding Controlled with: Pressure Patient tolerated procedure well Assessment/Plan Assessment: See above diagnoses, major wound diagnoses PVD and venous leg ulcer of the left lower extremity Plan: The patient was seen and examined at the wound center today and was updated on the plan of care. A subcutaneous debridement was performed today. The patient tolerated the procedure well. The patients wound care will consist of: Paulina application with 3m wrap for compression, change in 4 days. Will request recent arterial studies and blood work for review, per pt was normal. Wound cultures were collected prior and showed anaerobic bacteria, patient treated with Augmentin and he is tolerating. Patient educated on the importance of diet on wound healing and instructed to increase protein and vitamin C intake. Patient verbalized understanding. Given the delayed wound healing and the fact that patient has failed 2 months of standard wound treatment from his primary care, will apply for the use of an advanced skin substitute. Patient will follow up at wound healing center in one week or sooner if needed. This note was generated with [employer] dictation software. It may contain incorrect words, spelling, and punctuation that were not noted in checking the note before signing. Code Visit 111xxx-113xx: 03980 Elizabeth subq tissue 20 sq cm/<
== END 2019-08-14 23:59 ==
LOC: WC 14:15
PROVIDERS: Family Provider Nurse Practitioner Family; PCP Nurse Practitioner Family; Visit Provider Nurse Practitioner Family
DX: I83.028 Varicose veins of left lower extremity with ulcer other part of lower leg (principal); L97.822 Non-pressure chronic ulcer of other part of left lower leg with fat layer exposed; L40.9 Psoriasis, unspecified; F40.9 Phobic anxiety disorder, unspecified; F10.20 Alcohol dependence, uncomplicated
CPT/HCPCS: 11042; 15271; 15272; 87070; 87075; 87077; 87186; 87205; 87640; 99212; Q4101; G0463

== ENCOUNTER 2019-08-31 13:00 | Outpatient (RCR) | payer OTHER, SELFPAY ==
[2019-08-15 01:03] VITALS: BP 136/78; PULSE 87; RESP 16; TEMP 36.2
--- NOTE | 2019-08-17 | LES_PTH ---
PATIENT: BECKY VILLASEÑOR LOC: U#:[id number] AGE/SX: 69/M ROOM: RE08/31/[address]: VONNIE Ballard : 1950 BED: DIS: 09/14/2019 SPEC #: [id number] RECD: 08/17/19 09:17 STATUS: BARRY KAYLEEN #: [id number] TAMARA: 08/17/19 00:[address]: Domenico Arteaga NP DEPT: SURGICAL PATHOLOGY RECD BY: Kai Ruiz ENTERED: 08/18/19 09:18 SP TYPE: Lesion OTHR DR: VONNIE Freed Tissues: Skin of leg, NOS Procedures: Special Stain Group I Surgery Specimen Level IV GMS Stain (control) HEADER OPERATION: Punch biopsy LLE PRE-OP DIAGNOSIS: Nonhealing wound LLE TISSUE SUBMITTED: Punch biopsy LLE MICROSCOPIC DIAGNOSIS Left lower extremity skin lesion, punch biopsy: Acute and chronic inflammation. See microscopic description and comment. AM:madelaine 08/21/19 COMMENT GMS stain with matched control is negative for fungal organisms. Clinical correlation is suggested. MICROSCOPIC DESCRIPTION Slides are reviewed. Sections show acanthosis epidermis with superficial acute inflammation. The superficial dermis shows chronic inflammation with perivascular cuffing of blood vessels by primarily polymorphous lymphocytes. GROSS DESCRIPTION Received in fixative is one container labeled with the patient's name and designated left lower leg. The specimen consists of a punch biopsy of patel-white skin measuring 0.2 cm in diameter and 0.2 cm in length. The entire specimen is submitted in one cassette. / SJ:madelaine 08/18/19 TC:2 CPT: 43980, [id number]
[2019-08-17 14:24] VITALS: BP 115/66; PULSE 84; RESP 16; TEMP 36.2; BMI 25.0
--- NOTE | 2019-08-17 15:54 | PCM.WC.PN ---
(1) Venous ulcer of left leg Status: Acute Code(s): I83.029 - Varicose veins of left lower extremity with ulcer of unspecified site; L97.929 - Non-pressure chronic ulcer of unspecified part of left lower leg with unspecified severity (2) ADHD Status: Acute Code(s): F90.9 - Attention-deficit hyperactivity disorder, unspecified type (3) Alcohol dependence Status: Acute Code(s): F10.20 - Alcohol dependence, uncomplicated (4) Depression Status: Acute Code(s): F32.9 - Major depressive disorder, single episode, unspecified (5) PVD (peripheral vascular disease) Status: Acute Code(s): I73.9 - Peripheral vascular disease, unspecified (6) Psoriasis Status: Acute Code(s): L40.9 - Psoriasis, unspecified Type of Wound Date of Service: 08/17/19 Chief Complaint: Nonhealing ulcer left lower extremity x2 months History of Wound: This is a 69-year-old white male who presents to the wound healing center today with a complaint of nonhealing ulcer to the left lower extremity x2 months. He has a past medical history as listed above significant for peripheral vascular disease, depression, ADHD, alcohol dependence, and psoriasis. The patient states that he was initially seen by his primary care provider who had placed him initially on Keflex for the surrounding cellulitis and has been covering the site with gauze. He states that the wound initially occurred after he started picking at 1 of his areas of psoriasis. He states that there is no improvement on the Keflex so his antibiotic was most recently switched to clindamycin. He continues to report some surrounding erythema but no systemic signs of infection such as fevers, chills, malaise, nausea or vomiting. He denies any other acute concerns at this time. He denies any other aggravating or relieving factors. He did recently have arterial studies done this week, however records are not available for review at this time. Progress of Wound: Wound is slightly worsened, surrounding area of cellulitis is improved, still some erythema periwound bed. Patient completed his clindamycin prior. His cultures were reviewed and showed anerobic bacteria and pt was placed on augmentin, which he is tolerating. Given the worsening signs of wound and delayed wound healing, a punch biopsy was done today and patient tolerated well. The patient otherwise denies any fever, chills, nausea, vomiting, shortness of breath, chest pain or pressure, palpitations, orthopnea, lower extremity edema, syncope or presyncopal episodes. - Physical Exam Vital Signs Temp Pulse Resp BP 97.1 F L 84 16 115/66 08/17/19 14:24 08/17/19 14:24 08/17/19 14:24 08/17/19 14:24 General: Alert, Oriented x3, Cooperative, No apparent distress HEENT: Atraumatic Oral: Moist Mucosa Lungs: Clear to auscultation Cardiovascular: Regular rate Abdomen: Soft, Non Tender Extremities: No clubbing, No cyanosis, No edema Skin: Ulcer/ Wound - Ulceration to left lower extremity with hyper granular tissue, chronic erythema noted about 3.5 cm beyond periwound bed, no warmth or streaking noted Neurological: Neuro grossly intact Psych/Mental Status: Normal Affect, Appropriate, Alert and oriented to time, place, person, mood and affect Debridement Note Post-Debridement Measurements/Treatment WC - Nurse 2 - General Ulcer CM Notes Start: 08/17/19 14:23 Freq: Status: Active Protocol: Activity Type Activity Date Activity User E-Sign Co-Sign Detail Recorded Client Recorded Date Recorded By Document 08/17/19 17:12 AN [id number] 08/17/19 17:14 AN 08/17/19 17:12 Wound Center Nurse 2 1. L maurizio LE -Time 16:00 -Correct Patient Yes -Correct Side, Site, Position Yes -Correct Procedure Yes -Procedure Performed Yes -Type of Procedure Debridement -Clinical Debridement Subcutaneous -Post Debridement Size (cm) - Length 3.9 -Post Debridement Size (cm) - Width 3.3 -Post Debridement Size (cm) - Depth 0.2 -Total Square Cm 12.87 -Wound/Ulcer Outcome Not Healed -Ulcer Cleansing Rinsed/ Irrigated with Saline -Foul Odor after Cleansing No -Bioengineered Tissue No -Bleeding Controlled with Pressure -Offloading No -Treatment Response Procedure Tolerated Well Pain Scale: 0-10 Numeric Is Patient Pain Free? Yes Wound debrided: Left lower extremity ulcer Laterality: Left Type of Debridement: Excisional debridement Anesthesia Used: 5% Lidocaine Gel Depth: in the subcutaneous layer Percentage of wound debrided: 100 Instrument Used: 7mm curette Tissue Removed: -Devitalized tissue Severity: Fat Layer Exposed Amount of bleeding with debridement: Mild Bleeding Controlled with: Pressure, Silver Nitrate Patient tolerated procedure well Assessment/Plan Assessment: See above diagnoses, major wound diagnoses PVD and venous leg ulcer of the left lower extremity Plan: The patient was seen and examined at the wound center today and was updated on the plan of care. A subcutaneous debridement was performed today. The patient tolerated the procedure well. The patients wound care will consist of: Daily application of melgisorb due to the patient's heavy drainage with double Tubigrip's for compression, change in 4 days. Will request recent arterial studies and blood work for review, per pt was normal. Wound cultures were collected prior and showed anaerobic bacteria, patient treated with Augmentin and he is tolerating. Patient educated on the importance of diet on wound healing and instructed to increase protein and vitamin C intake. Patient verbalized understanding. Given the delayed wound healing and the fact that patient has failed 2 months of standard wound treatment from his primary care, will apply for the use of an advanced skin substitute. Baseline blood work was done and showed an elevated CRP and decreased prealbumin at 15. Patient was instructed to drink 3 protein drinks per day. Punch biopsy was also done today given worsening size and delayed wound healing. Patient will follow up at wound healing center in one week or sooner if needed. This note was generated with [employer] dictation software. It may contain incorrect words, spelling, and punctuation that were not noted in checking the note before signing. Code Visit 111xxx-113xx: 39037 Elizabeth subq tissue 20 sq cm/<
[2019-08-17 16:08] LABS: Absolute Lymphocyte Count 1.76 X10^3/uL (0.83-4.51); Absolute Neutrophil Count 5.2 X10^3/uL (2.0-7.7); Basophil# 0.11 X10^3/uL; Basophil% 1.3 % (0-1); Eosinophil# 0.61 X10^3/uL; Hematocrit 43.6 % (40-54); Hemoglobin 14.6 g/dL (13.0-16.5); Lymphocyte # 1.76 X10^3/ul (4.0); Lymphocyte % 20.2 % (19-41); Mean Corp Hgb Conc 33.5 g/dL (32-36); Mean Corpuscular Volume 92.6 fL (80-94); Mean Platelet Vol. 10.2 fl (6.2-12.0); Monocyte# 0.92 X10^3/uL; Monocyte% 10.6 % (0-10); NRBC Flagged by Analyzer 0 % (0-5); Neutrophil # 5.22 X10^3/uL (2.7-7.7); Platelet Count 209 K/mm3 (150-450); RBC Distribution Width CV 12.5 % (11.6-14.6); RBC Distribution Width SD 42.8 fl (35.1-43.9); Red Blood Count 4.71 M/mm3 (4.6-6.2); White Blood Count 8.7 K/mm3 (4.4-11.0)
[2019-08-17 16:39] LABS: ALB/GLOB Ratio 1.1 RATIO (0.9-2.4); AST(SGOT) 18 U/L (15-37); Alanine Aminotransfer ALT/SGPT 19 U/L (16-61); Albumin, Serum 3.6 g/dL (3.2-5.0); Alkaline Phosphatase 89 U/L (45-117); Anion Gap 6 (5-15); BUN 16 mg/dL (7-18); BUN/Creat Ratio 15.8 RATIO (10-20); Calcium,Total 9.1 mg/dL (8.5-10.1); Chloride 105 mmol/L (98-107); Creatinine, Serum 1.01 mg/dL (0.70-1.30); EST Glomerular Filtration Rate 78 mL/min (>60); Est Glom Filt Rate - Afr Amer 94 mL/min (>60); Estimated Creatinine Clearance 83.66 ml/min; Globulin 3.4 g/dL (2.2-4.2); Glucose 65 mg/dL (74-106); Potassium 4.1 mmol/L (3.5-5.1); Sodium Level 142 mmol/L (136-145)
[2019-08-17 17:18] LABS: Erythrocyte Sedimentation Rate 8 mm/hr (0-20)
[2019-08-24 14:44] VITALS: BP 138/71; PULSE 91; RESP 20; TEMP 36.9; BMI 25.0
--- NOTE | 2019-08-24 20:51 | PN.PCM_ITS ---
(1) Venous ulcer of left leg Status: Acute Code(s): I83.029 - Varicose veins of left lower extremity with ulcer of unspecified site; L97.929 - Non-pressure chronic ulcer of unspecified part of left lower leg with unspecified severity (2) ADHD Status: Acute Code(s): F90.9 - Attention-deficit hyperactivity disorder, unspecified type (3) Alcohol dependence Status: Acute Code(s): F10.20 - Alcohol dependence, uncomplicated (4) Depression Status: Acute Code(s): F32.9 - Major depressive disorder, single episode, unsp ecified (5) PVD (peripheral vascular disease) Status: Acute Code(s): I73.9 - Peripheral vascular disease, unspecified (6) Psoriasis Status: Acute Code(s): L40.9 - Psoriasis, unspecified Type of Wound Date of Service: 08/24/19 Chief Complaint: Nonhealing ulcer left lower extremity x2 months History of Wound: This is a 69-year-old white male who presents to the [facility] today with a complaint of nonhealing ulcer to the left lower extremity x2 months. He has a past medical history as listed above significant for peripheral vascular disease, depression, ADHD, alcohol dependence, and psoriasis. The patient states that he was initially seen by his primary care provider who had placed him initially on Keflex for the surrounding cellulitis and has been covering the site with gauze. He states that the wound initially occurred after he started picking at 1 of his areas of psoriasis. He states that there is no improvement on the Keflex so his antibiotic was most recently switched to clindamycin. He continues to report some surrounding erythema but no systemic signs of infection such as fevers, chills, malaise, nausea or vomiting. He denies any other acute concerns at this time. He denies any other aggravating or relieving factors. He did recently have arterial studies done this week, however records are not available for review at this time. Progress of Wound: Wound is slightly worsened, surrounding area of cellulitis is improved, still some erythema periwound bed. Patient completed his clindamycin prior. His cultures were reviewed and showed anerobic bacteria and pt was placed on augmentin, which he has completed. Given the worsening signs of wound and delayed wound healing, a punch biopsy was done prior and showed chronic and acute inflammation. Given the continued wound deterioration, patient will follow-up with dermatology for reassessment as well given his underlying psoriasis. The patient otherwise denies any fever, chills, nausea, vomiting, shortness of breath, chest pain or pressure, palpitations, orthopnea, lower extremity edema, syncope or presyncopal episodes. - Physical Exam Vital Signs Temp Pulse Resp BP 98.5 F 91 20 H 138/71 H 08/24/19 14:44 08/24/19 14:44 08/24/19 14:44 08/24/19 14:44 General: Alert, Oriented x3, Cooperative, No apparent distress HEENT: Atraumatic Oral: Moist Mucosa Lungs: Clear to auscultation, Normal air movement Cardiovascular: Regular rate, Regular Rhythm Abdomen: Soft, Non Tender, Non-Distended Extremities: No clubbing, No cyanosis, No edema, - - chronic venous changes present Skin: Ulcer/ Wound - see nursing documentation, ulcer is beefy red without signs of infection at this time Neurological: Neuro grossly intact Psych/Mental Status: Normal Affect, Appropriate, Alert and oriented to time, place, person, mood and affect Debridement Note Post-Debridement Measurements/Treatment WC - Nurse 2 - General Ulcer CM Notes Start: 08/17/19 14:23 Freq: Status: Active Protocol: Activity Type Activity Date Activity User E-Sign Co-Sign Detail Recorded Client Recorded Date Recorded By Document 08/17/19 17:12 AN [email or web address] 08/17/19 17:14 AN Document 08/24/19 17:19 AN [id number] 08/24/19 17:20 AN 08/17/19 08/24/19 17:12 17:19 Wound Center Nurse 2 1. L [facility] -Time 16:00 17:19 -Correct Patient Yes Yes -Correct Side, Site, Position Yes Yes -Correct Procedure Yes Yes -Procedure Performed Yes Yes -Type of Procedure Debridement Debridement -Clinical Debridement Subcutaneous Subcutaneous -Post Debridement Size (cm) - Length 3.9 5.1 -Post Debridement Size (cm) - Width 3.3 3.9 -Post Debridement Size (cm) - Depth 0.2 0.2 -Total Square Cm 12.87 19.89 -Wound/Ulcer Outcome Not Healed Not Healed -Ulcer Cleansing Rinsed/ Rinsed/ Irrigated with Irrigated with Saline Saline -Foul Odor after Cleansing No No -Bioengineered Tissue No No -Bleeding Controlled with Pressure Pressure -Offloading No No -Treatment Response Procedure Procedure Tolerated Well Tolerated Well Pain Scale: 0-10 Numeric Is Patient Pain Free? Yes Yes Wound debrided: right lower extremity ulcer Laterality: Right Type of Debridement: Excisional debridement Anesthesia Used: 5% Lidocaine Gel Depth: in the subcutaneous layer Percentage of wound debrided: 100 Instrument Used: 7mm curette Tissue Removed: slough and devitalized tissue Severity: Fat Layer Exposed Amount of bleeding with debridement: Mild Bleeding Controlled with: Pressure Patient tolerated procedure well Assessment/Plan Assessment: See above diagnoses, major wound diagnoses PVD and venous leg ulcer of the left lower extremity Plan: The patient was seen and examined at the wound center today and was updated on the plan of care. A subcutaneous debridement was performed today. The patient tolerated the procedure well. The patients wound care will consist of: Daily application of melgisorb due to the patient's heavy drainage with double Tubigrip's for compression. Will request recent arterial studies and blood work for review, per pt was normal. Wound cultures were collected prior and showed anaerobic bacteria, patient treated with Augmentin and he completed. Patient educated on the importance of diet on wound healing and instructed to increase protein and vitamin C intake. Patient verbalized understanding. Given the delayed wound healing and the fact that patient has failed 2 months of standard wound treatment from his primary care, will apply for the use of an advanced skin substitute. Baseline blood work was done and showed an elevated CRP and decreased prealbumin at 15. Patient was instructed to drink 3 protein drinks per day and reduce his alcohol intake. Patient will follow up at wound healing center in one week or sooner if needed. This note was generated with [employer] dictation software. It may contain incorrect words, spelling, and punctuation that were not noted in checking the note before signing. Code Visit 111xxx-113xx: 44455 Elizabeth subq tissue 20 sq cm/<
== END 2019-09-14 23:59 ==
LOC: WC 13:00
PROVIDERS: Family Provider Nurse Practitioner Family; PCP Nurse Practitioner Family; Referring Provider Nurse Practitioner Family; Visit Provider Nurse Practitioner Family
DX: I83.028 Varicose veins of left lower extremity with ulcer other part of lower leg (principal); L97.822 Non-pressure chronic ulcer of other part of left lower leg with fat layer exposed; L40.9 Psoriasis, unspecified; F10.20 Alcohol dependence, uncomplicated
CPT/HCPCS: 11042; 36415; 80053; 84134; 85025; 85652; 86140; 87070; 87075; 87205; 88305; 88312

== ENCOUNTER → 2019-08-31 13:55 | Outpatient (CLI) | payer OTHER, SELFPAY ==
[2019-08-24 14:44] VITALS: BMI 25.0
== END ==
PROVIDERS: Family Provider Nurse Practitioner Family; PCP Nurse Practitioner Family; Referring Provider Dermatology; Visit Provider Dermatology
DX: I83.028 Varicose veins of left lower extremity with ulcer other part of lower leg (principal)
CPT/HCPCS: 87070; 87075; 87205

== ENCOUNTER → 2019-11-16 18:00 | Outpatient (CLI) | payer MEDICARE, SELFPAY ==
[2019-08-24 14:44] VITALS: BMI 25.0
== END ==
PROVIDERS: Family Provider Nurse Practitioner Family; PCP Nurse Practitioner Family; Referring Provider Dermatology; Visit Provider Dermatology
DX: L88 Pyoderma gangrenosum (principal)
CPT/HCPCS: 87070; 87077; 87186; 87205

== ENCOUNTER → 2019-12-28 | Outpatient (CLI) | payer MEDICARE, SELFPAY ==
[2019-08-24 14:44] VITALS: BMI 25.0
== END | disposition home or self-care (01) ==
LOC: LABSPEC 14:35
PROVIDERS: PCP Nurse Practitioner Family; Referring Provider Dermatology; Visit Provider Dermatology
DX: L88 Pyoderma gangrenosum (principal); L40.0 Psoriasis vulgaris; Z79.899 Other long term (current) drug therapy
CPT/HCPCS: 87070; 87077; 87186; 87205